=== PATIENT | female | born 1980 | race American Indian/Alaskan Native ===

== ENCOUNTER 2018-11-28 14:33 | Emergency (ER) | payer MEDICAID ==
[2018-11-28 14:54] VITALS: BP 129/80
--- NOTE | 2018-11-28 14:57 | Event Note ---
ED Screening Note Date of service: 11/28/18 Time: 14:52 ED Screening Note: This is a 38 y.o. F. that presents to the ER with abdominal pain and vomiting. Patient states she had lapband surgery 6 years ago and went for an adjustment yesterday. Reports swelling and pain to abdomen. States she called surgeon and they told her to come to the ER. LMP 10/21/2018 Reports unable to keep anything down. This initial assessment/diagnostic orders/clinical plan/treatment(s) is/are subject to change based on patients health status, clinical progression and re- assessment by fellow clinical providers in the ED. Further treatment and workup at subsequent clinical providers discretion. Patient/guardian urged not to elope from the ED as their condition may be serious if not clinically assessed and managed. Initial orders include: Labs and CT of abdomen and pelvis pain
[2018-11-28 15:42] LABS: Bacteria,Urine 1+ /HPF (Negative); Bilirubin,Urine NEG (Negative); Blood,Urine SM (Negative); Color,Urine Amber (Yellow); Mucus,Urine 3+ /HPF; Urobilinogen,Urine < 2.0 mg/dL (<2.0)
[2018-11-28] MEDS ORDERED: ZOFRAN ODT PO ONE (16:30)
--- NOTE | 2018-11-28 16:33 | Emergency Department Report ---
ED Abdominal Pain HPI - General Chief Complaint: Abdominal Pain Stated Complaint: STOMACH PAIN Time Seen by Provider: 11/28/18 14:52 Source: patient Mode of arrival: Ambulatory Limitations: No Limitations - History of Present Illness Initial Comments: 38-year-old female status post lap band surgery 6 years ago presents to ED with abdominal pain. Patient states she is currently having pain because she went for an adjustment of her lap band on yesterday at her doctor's office. Patient states she believes too much liquid was added to her lap band and she needs to have some removed. Patient reports nausea and vomiting since her doctor's appointment on yesterday. Patient denies fever, diarrhea. States she contacted the office and was told to come to the ER. Bariatric Surgeon: Dr Terry Menendez MD Complaint: abdominal pain -: days(s) (1) Location: LUQ Radiation: none Migration to: no migration Severity: moderate Quality: cramping Consistency: constant Improves With: nothing Worsens With: nothing Context: recent surgery/procedure Associated Symptoms: nausea, vomiting. denies: diarrhea, fever - Related Data Allergies Allergy/AdvReac Type Severity Reaction Status Date / Time No Known Allergies Allergy Unverified 11/28/18 14:34 ED Review of Systems ROS: Stated complaint: STOMACH PAIN Other details as noted in HPI Comment: All other systems reviewed and negative Constitutional: denies: chills, fever Gastrointestinal: abdominal pain, nausea, vomiting. denies: diarrhea ED Past Medical Hx - Past Medical History Previous Medical History?: No - Surgical History Past Surgical History?: Yes Hx Breast Surgery: Yes (reduction) Additional Surgical History: lap band - Social History Smoking Status: Never Smoker Substance Use Type: Alcohol ED Physical Exam - General Limitations: No Limitations General appearance: alert, in no apparent distress - Head Head exam: Present: atraumatic, normocephalic - Eye Eye exam: Present: normal appearance, PERRL, EOMI - ENT ENT exam: Present: mucous membranes moist - Neck Neck exam: Present: normal inspection - Respiratory Respiratory exam: Present: normal lung sounds bilaterally. Absent: respiratory distress - Cardiovascular Cardiovascular Exam: Present: regular rate, normal rhythm - GI/Abdominal GI/Abdominal exam: Present: soft, tenderness (LUQ tenderness present). Absent: distended - Extremities Exam Extremities exam: Present: normal inspection - Neurological Exam Neurological exam: Present: alert, oriented X3 - Psychiatric Psychiatric exam: Present: normal affect, normal mood - Skin Skin exam: Present: warm, dry, intact, normal color ED Course Vital Signs 11/28/18 14:52 Temperature 98.2 F Pulse Rate 78 Respiratory 18 Rate Blood Pressure 129/80 O2 Sat by Pulse 98 Oximetry - Consultations Consultation #1: 11/28/18 17:05 Spoke w/ Dr Menendez. Pt to meet his outpatient physical therapist assistant at the office for band adjustment. ED Medical Decision Making - Lab Data Result diagrams: 11/28/18 16:18 11/28/18 16:18 - Differential Diagnosis lap band malfunction Critical care attestation.: If time is entered above; I have spent that time in minutes in the direct care of this critically ill patient, excluding procedure time. ED Disposition Clinical Impression: Abdominal pain Disposition: DC-01 TO HOME OR SELFCARE Is pt being admited?: No Condition: Stable Instructions: Abdominal Pain (ED) Referrals: PRIMARY CARE, [Primary Care Provider] - 3-5 Days TERRY MENENDEZ MD [Staff Physician] - [facility] Time of Disposition: 16:56
[2018-11-28 16:54] LABS: Basophils # (Auto) 0.1 K/mm3 (0.0-0.1); Basophils % (Auto) 0.7 % (0.0-1.8); Eosinophils % (Auto) 0.3 % (0.0-4.3); Hematocrit 39.3 % (30.3-42.9); Hemoglobin 12.9 gm/dl (10.1-14.3); Lymphocytes # (Auto) 1.6 K/mm3 (1.2-5.4); Lymphocytes % (Auto) 17.6 % (13.4-35.0); Mean Corpuscular HGB Conc 33 % (30-34); Mean Corpuscular Volume 90 fl (79-97); Monocytes # (Auto) 0.5 K/mm3 (0.0-0.8); Monocytes % (Auto) 5.4 % (0.0-7.3); Platelet Count 313 K/mm3 (140-440); Red Blood Count 4.35 M/mm3 (3.65-5.03); Red Cell Distribution Width 16.9 % (13.2-15.2)
[2018-11-28 17:06] LABS: Alanine Aminotransferase 10 units/L (7-56); Albumin 4.4 g/dL (3.9-5); BUN/Creatinine Ratio 13; Blood Urea Nitrogen 10 mg/dL (7-17); Calcium 9.5 mg/dL (8.4-10.2); Hemolysis Index 9
== END 2018-11-28 17:03 | disposition home or self-care (01) ==
LOC: ED 14:33
DX: R10.32 Left lower quadrant pain (principal); R11.2 Nausea with vomiting, unspecified
CPT/HCPCS: 36415; 80053; 81001; 83690; 84703; 85025; Q0162

== ENCOUNTER 2020-06-27 11:00 | Outpatient (CLI) | payer MEDICAID | END 2020-06-27 11:01 | disposition home or self-care (01) | LOC: SLR 11:00 | PROVIDERS: ATTEND Otolaryngology | DX: G47.30 Sleep apnea, unspecified (principal); I10 Essential (primary) hypertension; R06.83 Snoring | CPT/HCPCS: G0399 ==

== ENCOUNTER 2020-11-30 10:06 | Outpatient (CLI) | payer MEDICAID ==
--- NOTE | 2020-11-30 13:09 | Fluoroscopy Report ---
UPPER GI INDICATION / CLINICAL INFORMATION: BARIATRIC SURGERY TECHNIQUE: Upper GI exam was performed with double contrast barium and air. COMPARISON: None available. FINDINGS: MOTILITY: No significant abnormality. MUCOSA: No significant abnormality. MASS: None. STRICTURE: None. HIATAL HERNIA: None. REFLUX: None. STOMACH: Patient is status post lap band procedure. The lap band is approximating the gastroesophagea l junction and contrast is seen to spill quickly into the distal portion of the stomach. Late imaging demonstrates near complete opacification of the stomach with no identifiable pouch created by the la p band. DUODENUM: No significant abnormality. ADDITIONAL FINDINGS: None. Fluoroscopy Time: 1.5 minute. Fluoroscopy Images: 12. IMPRESSION: 1. Status post lap band procedure with the lap band approximating the gastroesophageal junction. Late imaging demonstrates near complete opacification of the entirety of the stomach with no identifiable pouch created by the lap band. Signer Name: Wai López DO Signed: 11/30/2020 1:05 PM Workstation Name: [id number]
== END 2020-11-30 10:07 | disposition home or self-care (01) ==
LOC: FLUORO 10:06
PROVIDERS: ATTEND Surgery
DX: K30 Functional dyspepsia (principal); Z98.84 Bariatric surgery status
CPT/HCPCS: 74246